=== PATIENT | female | born 1945 | race Caucasian/White ===

== ENCOUNTER → 2018-08-19 14:21 | Outpatient (CLI) | payer OTHER, SELFPAY ==
--- NOTE | 2018-08-19 | DI.RAD.S_ITS ---
PROCEDURE: XR FEMUR LT MIN 2V INDICATIONS: Hip joint pain, femur pain TECHNIQUE: 2 views of the femur were acquired. COMPARISON: None. FINDINGS: Bones: No acute fracture dislocation. Left total knee arthroplasty is intact. There is mild hip joint space narrowing. Soft tissues: No suspicious soft tissue calcifications or masses. IMPRESSION: Degenerative change. No acute radiographic findings. If pain persists, consider advanced imaging with CT or MRI. Dictated by: Heather Alva M.D. on 08/19/2018 at 17:51 Approved by: Heather Alva M.D. on 08/19/2018 at 17:53
--- NOTE | 2018-08-19 | DI.RAD.S_ITS ---
PROCEDURE: XR HIP W PEL IF DONE LT 2V INDICATIONS: Hip joint pain, left TECHNIQUE: 2 views of the hip were acquired. COMPARISON: None. FINDINGS: Bones: No fractures or dislocations. No suspicious bony lesions. The visualized pelvic ring appears intact. There is mild hip joint space narrowing. Soft tissues: No suspicious soft tissue calcifications or masses. There is soft tissue vascular calcifications. IMPRESSION: Mild degenerative change. If pain persists, consider advanced imaging with CT or MRI. Dictated by: Heather Alva M.D. on 08/19/2018 at 17:58 Approved by: Heather Alva M.D. on 08/19/2018 at 17:59
--- NOTE | 2018-08-19 | DI.MRI.S_ITS ---
PROCEDURE: MR LUMBAR SPINE WO CON INDICATIONS: Fracture unspecified lumber vertebra TECHNIQUE: Noncontrast sagittal T1 spin echo and T2 fast echo, sagittal STIR, axial T1 and T2 fast spin echo through the lumbar spine. In cases with scoliosis, additional coronal T2 fast spin echo may be performed. COMPARISON: None. FINDINGS: Image quality: Excellent. Alignment and Curvature: There is mild levoscoliosis. Grade 1 anterolisthesis at L3-L4 and L4-L5 Bone Marrow: There is acute/subacute compression fracture of L1 involving the superior endplate with associated marrow edema, resulting in 20-30% loss of vertebral body height. No posterior displacement of the L1 vertebral body. There is a linear low signal across the L2 vertebral body with subtle marrow edema, suspicious for fracture. There is no loss of vertebral body height of L2. Degenerative endplate signal changes are present at multiple levels. Spinal Cord: Conus medullaris terminates at the L1-L2 level. Visualized cord demonstrates normal signal and size. Paraspinous Soft Tissues: No paravertebral masses. T12-L1: Preserved disc height. Mild disc desiccation. There is no posterior disc bulge. Moderate bilateral facet arthropathy. The central canal is patent. No foraminal stenosis. L1-L2: Severe loss of disc height and disc desiccation. There is broad posterior disc bulge and disc osteophyte complex. Mild bilateral facet arthropathy and hypertrophy of ligamentum flavum. The central canal is mildly narrowed. There is moderate right and mild left foraminal stenosis. L2-L3: [id number] loss of disc height and disc desiccation. There is broad posterior disc bulge and disc osteophyte complex. Mild bilateral facet arthropathy and hypertrophy of ligamentum flavum. The central canal is patent. There is [id number] foraminal stenosis bilaterally. L3-L4: [id number]-[id number] loss of disc height and disc desiccation. There is broad posterior disc bulge and disc osteophyte complex. Mild bilateral facet arthropathy and hypertrophy of ligamentum flavum. The central canal is mildly narrowed. There is [id number] foraminal stenosis bilaterally. L4-L5: Moderate loss of disc height and disc desiccation. There is broad posterior disc bulge and disc osteophyte complex. Mild bilateral facet arthropathy and hypertrophy of ligamentum flavum. The central canal is mildly narrowed. There is moderate left and mild right foraminal stenosis. L5-S1: Ijorotdf-zy-qighjz loss of disc height and disc desiccation. There is broad posterior disc bulge and disc osteophyte complex. Mild bilateral facet arthropathy. The central canal is patent. There is moderate bilateral foraminal stenosis. IMPRESSION: 1. Acute/subacute compression fracture of L1 involving the superior endplate with marrow edema and 20-30% loss of vertebral body height. No posterior displacement of fracture L1 vertebral body. Possible fracture of the L2 vertebral body without loss of vertebral body height. 2. Multilevel degenerative disc disease and facet arthropathy as described. 3. Mild central canal stenosis at L1-L2, L3-L4 and L5-L5. 4. Multilevel foraminal stenoses as described. 5. Mild levoscoliosis. Dictated by: Kristin Velasco M.D. on 08/21/2018 at 11:21 Approved by: Kristin Velasco M.D. on 08/21/2018 at 17:44
== END ==
PROVIDERS: Visit Provider Nurse Practitioner Primary Care
DX: M25.552 Pain in left hip (principal); M79.652 Pain in left thigh; Z96.652 Presence of left artificial knee joint; S32.009D Unspecified fracture of unspecified lumbar vertebra, subsequent encounter for fracture with routine healing; M51.36 Other intervertebral disc degeneration, lumbar region; M51.37 Other intervertebral disc degeneration, lumbosacral region; M47.816 Spondylosis without myelopathy or radiculopathy, lumbar region; M47.817 Spondylosis without myelopathy or radiculopathy, lumbosacral region; M48.061 Spinal stenosis, lumbar region without neurogenic claudication; M48.07 Spinal stenosis, lumbosacral region
CPT/HCPCS: 72148; 73502; 73552